=== PATIENT | female | born 1955 | race African-American/Black ===

== ENCOUNTER 2019-01-27 15:11 | Outpatient (CLI) | payer MEDICARE ==
--- NOTE | 2019-01-27 16:04 | MMO ---
Bilateral MAMMO Bilat Screen [facility]. CLINICAL HISTORY: Patient is 63 years old and is seen for screening. The patient has no family history of breast cancer. The patient has a history of Lumpectomy procedure revealed intraductal carcinoma, high grade in the right breast in September,; Stereotactic Core Biopsy procedure revealed ductal carcinoma in situ, intermediate nuclear grade, solid and cribrifo tyupe with focal necrosis. in the right breast in July, and ductal carcinoma in situ. in the right breast in June,. The patient has a history of right Lumpectomy in September, - dcis - lumpectomy w/10mm clear margins and right Stereotatic Biopsy in July, - dcis. VIEWS: The views performed were: bilateral craniocaudal with tomosynthesis and bilateral mediolateral oblique with tomosynthesis. FILMS COMPARED: The present examination has been compared to prior imaging studies performed at [facility] on 12/13/2003 and 06/29/2013, and at [facility] on 12/10/2014 and 01/24/2016. MAMMOGRAM FINDINGS: There are scattered fibroglandular densities. Finding 1: There are stable benign appearing densities seen in both breasts. Finding 2: There are stable benign appearing calcifications seen in both breasts. There are no suspicious masses, suspicious calcifications, or new areas of architectural distortion. IMPRESSION: THERE IS NO MAMMOGRAPHIC EVIDENCE OF MALIGNANCY. A ROUTINE FOLLOW-UP MAMMOGRAM IN 1 YEAR IS RECOMMENDED. THE RESULTS OF THIS EXAM WERE SENT TO THE PATIENT. ACR BI-RADS Category 2 - Benign finding MAMMOGRAPHY NOTE: 1. A negative mammogram report should not delay a biopsy if a dominant of clinically suspicious mass is present. 2. Approximately 10% to 15% of breast cancers are not detected by mammography. 3. Adenosis and dense breasts may obscure an underlying neoplasm. Reported by: FELIPE THOMPSON MD Electonically Signed: [id number]
--- NOTE | 2019-01-27 16:08 | RAD ---
XR Hand Lt 3 View STANDARD HISTORY: Left hand and wrist pain FINDINGS: No fracture or dislocation is identified. Mild degenerative changes are present.
--- NOTE | 2019-01-27 16:12 | RAD ---
LEFT WRIST 3 VIEWS: HISTORY: Left wrist pain FINDINGS: No acute fracture or dislocation is identified. If symptoms do not improve, a follow-up exam should be obtained in 7-10 days.
== END 2019-01-27 15:12 | disposition home or self-care (01) ==
LOC: BICMAMMO 15:11
PROVIDERS: ATTEND Family Medicine
DX: Z12.31 Encounter for screening mammogram for malignant neoplasm of breast (principal); M79.642 Pain in left hand; M25.532 Pain in left wrist; Z98.890 Other specified postprocedural states
CPT/HCPCS: 77063; 77067

== ENCOUNTER 2021-02-06 | Outpatient (CLI) | payer MEDICARE | END 2021-02-06 08:28 | disposition home or self-care (01) | DX: Z12.31 Encounter for screening mammogram for malignant neoplasm of breast (principal); Z86.000 Personal history of in-situ neoplasm of breast; Z98.890 Other specified postprocedural states | CPT/HCPCS: 77063; 77067 ==

== ENCOUNTER 2022-02-16 11:46 | Outpatient (CLI) | payer MEDICARE | END 2022-02-16 11:47 | disposition home or self-care (01) | LOC: BICMAMMO 11:46 | PROVIDERS: ATTEND Family Medicine | DX: Z12.31 Encounter for screening mammogram for malignant neoplasm of breast (principal); Z98.890 Other specified postprocedural states; Z85.3 Personal history of malignant neoplasm of breast | CPT/HCPCS: 77063; 77067 ==

== ENCOUNTER 2023-03-22 10:46 | Outpatient (CLI) | payer MEDICARE | END 2023-03-22 10:47 | disposition home or self-care (01) | LOC: BICMAMMO 10:46 | PROVIDERS: ATTEND Family Medicine | DX: Z12.31 Encounter for screening mammogram for malignant neoplasm of breast (principal); Z85.3 Personal history of malignant neoplasm of breast; Z86.000 Personal history of in-situ neoplasm of breast; Z98.890 Other specified postprocedural states | CPT/HCPCS: 77063; 77067 ==

== ENCOUNTER 2024-05-10 10:53 | Outpatient (CLI) | payer MEDICARE | END 2024-05-10 10:54 | disposition home or self-care (01) | LOC: BICMAMMO 10:53 | PROVIDERS: ATTEND Family Medicine | DX: Z12.31 Encounter for screening mammogram for malignant neoplasm of breast (principal); Z86.000 Personal history of in-situ neoplasm of breast; Z98.890 Other specified postprocedural states | CPT/HCPCS: 77063; 77067 ==